=== PATIENT | male | born 1965 | race Caucasian/White ===

== ENCOUNTER 2016-04-21 04:54 | Inpatient (IN) | payer OTHER ==
[~2016-04-21] VITALS: Ht 152.4 cm; Wt 46.7 kg
[~2016-04-21 04:54] MED LIST: LEVEMIR100 UNIT/2 SC; LIDOCAINE700 MG TD; METFORMIN HCL1000 MG PO; NOVOLOG PE100 UNITS/ SC; PRILOSEC20 MG PO; TYLENOL REGULA325 MG PO; ZYRTEC10 M3 PO
[2016-04-21 06:02] LABS: HEMATOCRIT 43.1 % (38.0-50.0); MCH 24.2 PG (29.0-34.0); MCV 75.5 FL (86-99); MEAN PLAT.VOLUME 10.9 uM^3 (9.0-12.4); PLATELET COUNT 400 K/uL (156-360); RBC DIS.WIDTH-CV 16.6 % (11.8-14.6); RBC DIS.WIDTH-SD 43.9 % (39-53); RED BLOOD COUNT 5.71 M/uL (4.00-5.50); WHITE BLOOD COUNT 13.1 K/uL (4.1-10.2)
[2016-04-21 06:04] LABS: EOSINOPHIL (%) 0.1 % (0-5); IMMATURE GRANULOCYTE (%) 0.2 % (0.0-0.7); IMMATURE GRANULOCYTE COUNT 0.2 K/uL; LYMPHOCYTE COUNT 1.1 K/uL (1.0-2.8); MONOCYTE (%) 5.2 % (3-12); MONOCYTE COUNT 0.7 K/uL (0-0.8); NEUTROPHIL COUNT 11.2 K/uL (1.8-6.4)
[2016-04-21 06:10] LABS: CHLORIDE 99 mEq/L (99-109); POTASSIUM 3.7 mEq/L (3.7-5.4); SODIUM 141 mEq/L (136-147)
[2016-04-21 06:12] LABS: GLUCOSE 134 mg/dL (70-99)
[2016-04-21 06:13] LABS: ANION GAP 18 MEQ/L (2-14)
[2016-04-21 06:14] LABS: TOTAL BILIRUBIN 0.6 mg/dL (0.0-1.0)
[2016-04-21 06:15] LABS: ALKALINE PHOSPHATASE 102 IU/L (3-129)
[2016-04-21 06:16] LABS: GFR ESTIMATE (CALCULATED) > 59 mL/min/
[2016-04-21 06:17] LABS: UREA NITROGEN (BUN) 18 mg/dL (9-23)
[2016-04-21 06:19] LABS: LIPASE 18 U/L (1.0-51.0)
[2016-04-21 07:05] LABS: INFLUENZA A VIRAL ANTIGEN NEGATIVE; INFLUENZA B VIRAL ANTIGEN NEGATIVE
[2016-04-21] MEDS ORDERED: LEVEMIR FL100 UNIT/1 SC ×2 (07:18)
[2016-04-21] MEDS ORDERED: BENZONATATE100 MG PO (07:20)
[2016-04-21] MEDS ORDERED: BENADRYL25 MG PO (07:21)
[2016-04-21] MEDS ORDERED: MICATIN15 GM TP (07:21)
[2016-04-21] MEDS ORDERED: NOVOLOG PE100 UNITS/ SC (07:24)
[2016-04-21 08:08] LABS: ADD MIUA? YES; BILIRUBIN NEGATIVE; BLOOD NEGATIVE; COLOR YELLOW ((YELLOW)); GLUCOSE (STRIP) NEGATIVE; KETONES 80; LEUKOCYTES SMALL; NITRITE NEGATIVE; PROTEIN (STRIP) 30; SPECIFIC GRAVITY 1.019 (1.000-1.030)
[2016-04-21 08:19] LABS: BACTERIA 3+ /HPF; EPITHELIAL CELLS NONE SEEN /HPF; MUCUS 1+ /LPF; RED BLOOD CELLS NONE SEEN /HPF (0-5); UCUL ADDED? YES; WHITE BLOOD CELLS 15-20 /HPF (0-5)
[2016-04-21 16:00] VITALS: BP 134/67
[2016-04-21 17:48] LABS: POINT-OF-CARE METER ID UU14174216; POINT-OF-CARE USER ID ENVKC36
[2016-04-21 19:30] VITALS: BP 100/60
[2016-04-21 22:20] LABS: POINT-OF-CARE METER ID UU14174216
[2016-04-22 00:08] VITALS: BP 98/53
[2016-04-22 05:47] LABS: POINT-OF-CARE METER ID UU13113698
[2016-04-22 07:11] LABS: HEMATOCRIT 30.5 % (38.0-50.0); MCH 24.3 PG (29.0-34.0); MCHC 31.1 G/DL (30.0-36.0); RBC DIS.WIDTH-CV 16.5 % (11.8-14.6); RBC DIS.WIDTH-SD 47.1 % (39-53); WHITE BLOOD COUNT 10.8 K/uL (4.1-10.2)
[2016-04-22 07:14] LABS: RED BLOOD COUNT 3.91 M/uL (4.00-5.50)
[2016-04-22 07:17] LABS: ANION GAP 9 MEQ/L (2-14); CHLORIDE 108 MEQ/L (99-109); GFR ESTIMATE (CALCULATED) > 59 mL/min/; GLUCOSE 113 mg/dL (70-99); SAMPLE HEMOLYSIS CHECK 0; SAMPLE ICTERIC CHECK 0; SAMPLE LIPEMIA CHECK 0; SODIUM 140 MEQ/L (136-147); UREA NITROGEN (BUN) 8 mg/dL (9-23)
[2016-04-22 07:18] LABS: POTASSIUM 2.9 MEQ/L (3.7-5.4)
[2016-04-22 08:00] LABS: PLATELET COUNT UNABLE TO REPORT K/uL (156-360)
[2016-04-22 09:06] VITALS: BP 115/58
[2016-04-22 10:28] LABS: POINT-OF-CARE METER ID UU13113698
[2016-04-22 11:20] VITALS: BP 121/64
[2016-04-22 15:50] VITALS: BP 109/51
[2016-04-22 15:53] LABS: POINT-OF-CARE METER ID UU13113698
[2016-04-22 19:45] VITALS: BP 142/75
[2016-04-22 20:49] LABS: POINT-OF-CARE METER ID UU14174216
[2016-04-22 23:29] VITALS: BP 125/66
[2016-04-23 03:37] VITALS: BP 127/67
[2016-04-23 08:27] VITALS: BP 124/71
[2016-04-23 11:07] LABS: POINT-OF-CARE METER ID UU13113698
[2016-04-23 11:12] VITALS: BP 129/77
[2016-04-23 11:37] LABS: POINT-OF-CARE METER ID UU13113675
[2016-04-23 15:46] VITALS: BP 135/75
[2016-04-23] MEDS ORDERED: HYDROCODON-ACE1 EAC7 PO (16:12)
[2016-04-23] MEDS ORDERED: COLACE100 MG PO (16:12)
[2016-04-23 16:17] LABS: POINT-OF-CARE METER ID UU13113698
[2016-04-23 19:29] VITALS: BP 135/80
[2016-04-23 21:49] LABS: POINT-OF-CARE METER ID UU13113698
[2016-04-24] VITALS (7 sets, daily range): BP systolic 126–138; BP diastolic 44–88
[2016-04-24 08:22] LABS: POINT-OF-CARE METER ID UU13113698; POINT-OF-CARE USER ID ENVKC36
[2016-04-24 08:34] LABS: HEMATOCRIT 31.4 % (38.0-50.0); MCH 24.2 PG (29.0-34.0); MCHC 31.5 G/DL (30.0-36.0); MCV 76.8 FL (86-99); RBC DIS.WIDTH-CV 16.4 % (11.8-14.6); RBC DIS.WIDTH-SD 45.7 % (39-53); RED BLOOD COUNT 4.09 M/uL (4.00-5.50); WHITE BLOOD COUNT 7.7 K/uL (4.1-10.2)
[2016-04-24 08:59] LABS: ANION GAP 11 MEQ/L (2-14); CHLORIDE 102 MEQ/L (99-109); GFR ESTIMATE (CALCULATED) > 59 mL/min/; GLUCOSE 104 mg/dL (70-99); POTASSIUM 2.9 MEQ/L (3.7-5.4); SAMPLE HEMOLYSIS CHECK 0; SAMPLE ICTERIC CHECK 0; SAMPLE LIPEMIA CHECK 0; SODIUM 137 MEQ/L (136-147); UREA NITROGEN (BUN) 8 mg/dL (9-23)
[2016-04-24 09:51] LABS: MEAN PLAT.VOLUME 10.7 uM^3 (9.0-12.4); PLATELET COUNT 267 K/uL (156-360)
[2016-04-24 12:31] LABS: POINT-OF-CARE METER ID UU13113781; POINT-OF-CARE USER ID ENVKC36
[2016-04-24 16:47] LABS: POINT-OF-CARE USER ID ENVKC36
[2016-04-24 22:21] LABS: C DIFF TOXIN NEGATIVE (NEGATIVE)
[2016-04-24 22:28] LABS: PROBE CHECK PASS; SPECIMEN PROCESSING CONTROL PASS
[2016-04-25 06:00] VITALS: BP 130/73
[2016-04-25 08:00] VITALS: BP 121/79
[2016-04-25 11:15] VITALS: BP 122/70
[2016-04-25 19:00] VITALS: BP 110/77
[2016-04-25 20:16] LABS: ANION GAP 9 MEQ/L (2-14); CHLORIDE 98 MEQ/L (99-109); SAMPLE HEMOLYSIS CHECK 0; SAMPLE ICTERIC CHECK 0; SAMPLE LIPEMIA CHECK 0; SODIUM 134 MEQ/L (136-147)
[2016-04-25 20:28] LABS: GFR ESTIMATE (CALCULATED) > 59 mL/min/; UREA NITROGEN (BUN) 8 mg/dL (9-23)
[2016-04-25 20:35] LABS: GLUCOSE 167 mg/dL (70-99)
[2016-04-26 00:18] VITALS: BP 140/71
[2016-04-26 05:06] VITALS: BP 129/74
[2016-04-26 07:45] LABS: POINT-OF-CARE METER ID UU13113781
[2016-04-26 07:47] VITALS: BP 108/61
[2016-04-26 11:00] VITALS: BP 120/69
[2016-04-26 11:12] LABS: POINT-OF-CARE METER ID UU13113781
== END 2016-04-26 16:23 | disposition home or self-care (01) | DRG 343 ==
LOC: EME 04:54 → SDC 11:15 → EME 11:15 → 2SOUTH 12:31 → 4EAST 12:31
PROVIDERS: Emergency Medicine; Thoracic Surgery (Cardiothoracic Vascular Surgery)
PROC: 0DBJ0ZZ Excision of Appendix, Open Approach (ICD-10-PCS; principal; 2016-04-25)
DX: K35.80 Unspecified acute appendicitis (principal); M41.9 Scoliosis, unspecified; E11.9 Type 2 diabetes mellitus without complications; K21.9 Gastro-esophageal reflux disease without esophagitis; Q74.9 Unspecified congenital malformation of limb(s)
CPT/HCPCS: 74020; 74176; 80048; 80053; 81003; 82948; 83605; 83690; 85025; 85027; 87040; 87086; 87493; 87502; 88304; 93005; 94002; 94799; 99281; 99285; G0378; J0131; J0744; J1100; J1644; J1815; J1885; J2250; J2270; J2405; J2543; J2710; J3010; J7030; J7050; J7120

== ENCOUNTER 2016-04-29 21:27 | Emergency (ER) | payer OTHER ==
[~2016-04-29] VITALS: Ht 91.4 cm; Wt 44.8 kg
[~2016-04-29 21:27] MED LIST changes: +BENADRYL25 MG PO; +BENZONATATE100 MG PO; +COLACE100 MG PO; +HYDROCODON-ACE1 EAC7 PO; +LEVEMIR FL100 UNIT/1 SC; +MICATIN15 GM TP
[2016-04-29 23:09] LABS: HEMATOCRIT 31.5 % (38.0-50.0); MCH 23.7 PG (29.0-34.0); MCHC 31.7 G/DL (30.0-36.0); MCV 74.6 FL (86-99); RBC DIS.WIDTH-CV 17.3 % (11.8-14.6); RBC DIS.WIDTH-SD 44.9 % (39-53); RED BLOOD COUNT 4.22 M/uL (4.00-5.50); WHITE BLOOD COUNT 9.7 K/uL (4.1-10.2)
[2016-04-29 23:11] LABS: MEAN PLAT.VOLUME 9.8 uM^3 (9.0-12.4); PLATELET COUNT 636 K/uL (156-360)
[2016-04-29 23:20] LABS: CHLORIDE 107 mEq/L (99-109); POTASSIUM 3.7 mEq/L (3.7-5.4); SODIUM 138 mEq/L (136-147)
[2016-04-29 23:22] LABS: GLUCOSE 99 mg/dL (70-99)
[2016-04-29 23:24] LABS: ANION GAP 10 MEQ/L (2-14); TOTAL BILIRUBIN 0.2 mg/dL (0.0-1.0)
[2016-04-29 23:26] LABS: ALKALINE PHOSPHATASE 175 IU/L (3-129); GFR ESTIMATE (CALCULATED) > 59 mL/min/
[2016-04-29 23:27] LABS: UREA NITROGEN (BUN) 13 mg/dL (9-23)
[2016-04-29 23:28] LABS: DIRECT BILIRUBIN 0.1 mg/dL (0.0-0.3)
[2016-04-29 23:30] LABS: LIPASE 49 U/L (1.0-51.0)
[2016-04-30] MEDS ORDERED: MIRALAX255 GM PO (00:31)
[2016-04-30 00:51] VITALS: BP 139/84
[2016-04-30 10:39] LABS: HBSG INDEX 0.25
[2016-04-30 10:40] LABS: HPCA INDEX 0.12
[2016-04-30 10:41] LABS: ANTI-HEPATITIS A VIRUS (IGM) Nonreactive
[2016-04-30 10:42] LABS: ANTI-HEPATITIS B CORE (IGM) Nonreactive; HBC IgM INDEX 0.17
== END 2016-04-30 00:57 | disposition home or self-care (01) ==
LOC: EME 21:27
PROVIDERS: Emergency Medicine
DX: K59.00 Constipation, unspecified (principal); K75.9 Inflammatory liver disease, unspecified; R10.9 Unspecified abdominal pain; G89.18 Other acute postprocedural pain; E11.9 Type 2 diabetes mellitus without complications; K21.9 Gastro-esophageal reflux disease without esophagitis; G82.50 Quadriplegia, unspecified; Z79.4 Long term (current) use of insulin
CPT/HCPCS: 74176; 80048; 80074; 80076; 81003; 83690; 85027; 99281; 99284; J2405; J7030